=== PATIENT | male | born 1985 | race Caucasian/White ===

== ENCOUNTER 2022-02-10 09:15 | Emergency (ER) | payer MEDICAID ==
[2022-02-10] MEDS ORDERED: ONDANSETRON 4 MG/2 ML VIAL IVP STA (09:33)
[2022-02-10] MEDS ORDERED: MORPHINE 2 MG/ML CARPUJECT IVP STA (09:33)
--- NOTE | 2022-02-10 09:55 | XRAY Report ---
PROCEDURE: Chest 1 View X-Ray INDICATIONS: SOA; large R chest wall bruise TECHNIQUE: One view of the chest was acquired. COMPARISON: None FINDINGS: Surgical changes and devices: None. Lungs and pleura: No pleural effusions or pneumothorax. Lungs are clear. Mediastinum: Mediastinal contours appear normal. Heart size is normal. Bones and chest wall: No suspicious bony lesions. Overlying soft tissues appear unremarkable. IMPRESSION: No acute process. Reviewed by: Vonnie Yeager MD on 02/10/2022 9:53 AM PDT Approved by: Vonnie Yeager MD on 02/10/2022 9:53 AM PDT Station ID: [id number]
[2022-02-10 10:04] LABS: BASOPHILS # (AUTO) 0.1 10^3/uL (0.0-0.1); EOSINOPHILS % (AUTO) 0.2 %; HCT - HEMATOCRIT 36.9 % (42.0-52.0); HGB - HEMOGLOBIN 12.4 g/dL (14.0-18.0); LYMPHOCYTES # (AUTO) 0.8 10^3/uL (1.5-3.5); MEAN CORPUSCULAR HEMOGLOBIN 31.7 pg (27.0-31.0); MEAN CORPUSCULAR HGB CONC 33.6 g/dL (32.0-36.0); MEAN CORPUSCULAR VOLUME 94.4 fL (80.0-94.0); MEAN PLATELET VOLUME 9.4 fL (7.4-11.4); MONOCYTES # (AUTO) 1.2 10^3/uL (0.0-1.0); MONOCYTES % (AUTO) 20.6 %; NEUTROPHILS # (AUTO) 3.8 10^3/uL (1.5-6.6); NEUTROPHILS % (AUTO) 64.7 %; PLT - PLATELET COUNT 471 10^3/uL (130-450); RED BLOOD COUNT 3.91 10^6/uL (4.70-6.10); RED CELL DISTRIBUTION WIDTH 15.9 % (12.0-15.0); WHITE BLOOD COUNT 5.9 x10^3/uL (4.8-10.8)
[2022-02-10 10:13] LABS: PT - PROTHROMBIN TIME 11.5 secs (9.9-12.6)
[2022-02-10 10:19] LABS: ALBUMIN 3.8 g/dL (3.2-5.5); BILIRUBIN,TOTAL 1.8 mg/dL (0.2-1.0); CALCIUM 9.5 mg/dL (8.5-10.3); CREATININE 0.8 mg/dL (0.6-1.2); TOTAL PROTEIN 7.5 g/dL (6.7-8.2)
[2022-02-10] MEDS ORDERED: HYDROmorphone 1 MG/ML CARPUJECT IVP STA (11:09)
--- NOTE | 2022-02-10 11:48 | CT Report ---
PROCEDURE: CHEST W INDICATIONS: R sided ecchymosis of uknown etiology/SOA/CP CONTRAST: IV CONTRAST: Optiray 320 ml: 100 PO CONTRAST: *NO PO CONTRAST TECHNIQUE: After the administration of intravenous contrast, 1 mm axial images were acquired from the pulmonary apices through the posterior costophrenic angles. Axial 5 mm soft tissue kernel reconstructions were performed as well as 8 mm axial MIP and coronal and sagittal 5 mm reformations. For radiation dose reduction, the following was used: automated exposure control, adjustment of mA and/or kV according to patient size. COMPARISON: 02/10/2022 FINDINGS: Image quality: Excellent. Lungs and pleura: No acute air space opacities. No pleural effusions or pneumothorax. Central and peripheral airways are patent and normal in caliber. Mediastinum: Heart size is normal. No pericardial effusion. No mediastinal or hilar adenopathy by size criteria. Thoracic aorta and central pulmonary arteries are normal in size. Esophagus is tamica l in caliber. No hiatal hernia. Bones and chest wall: No suspicious bony lesions. No vertebral body compression fractures. No axil antoinette or supraclavicular adenopathy by size criteria. The thyroid is normal in size and there are no incidental findings.. Abdomen: Visualized portions of the upper abdomen demonstrate diffusely decreased hepatic density, i ndicating fatty infiltration. IMPRESSION: 1. No acute process. 2. Hepatic steatosis. Reviewed by: Vonnie Yeager MD on 02/10/2022 11:46 AM PDT Approved by: Vonnie Yeager MD on 02/10/2022 11:46 AM PDT Station ID: [id number]
--- NOTE | 2022-02-10 11:49 | CT Report ---
PROCEDURE: Abdomen/Pelvis W INDICATIONS: bruising of unknown etiology/abdominal pain CONTRAST: IV CONTRAST: Optiray 320 ml: 100 PO CONTRAST: *NO PO CONTRAST TECHNIQUE: After the administration of contrast, 5 mm thick sections acquired from the diaphragms to the sym physis. 5 mm thick coronal and sagittal reformats were acquired. For radiation dose reduction, the following was used: automated exposure control, adjustment of mA and/or kV according to patient size . COMPARISON: None. FINDINGS: Image quality: Excellent. ABDOMEN: Lung bases: Lung bases are clear. Heart size is normal. Solid organs: Liver is enlarged and demonstrates diffusely decreased density without focal mass Gall bladder is mildly distended and demonstrates a small amount of high density material within its lumen . No surrounding fat stranding to indicate acute inflammation. Biliary system is non dilated. Pancr eas enhances normally. No adrenal nodules. Kidneys demonstrate normal size and enhancement, without hydronephrosis. Peritoneum and bowel: Bowel loops demonstrate normal wall thickness and caliber. Appendix not seen. No evidence of appendicitis. No free fluid or air. Nodes and vessels: No retroperitoneal or mesenteric adenopathy by size criteria. Aorta and inferior vena cava are normal in size. Miscellaneous: No ventral hernias. PELVIS: Genitourinary: Bladder wall thickness is normal. Miscellaneous: No inguinal hernias or adenopathy. Bones: No suspicious bony lesions. No vertebral body compression fractures. IMPRESSION: 1. No acute process. 2. Cholelithiasis. No evidence of cholecystitis. 3. Appendix not seen. No evidence of appendicitis. 4. Hepatic steatosis. Reviewed by: Vonnie Yeager MD on 02/10/2022 11:48 AM PDT Approved by: Vonnie Yeager MD on 02/10/2022 11:48 AM PDT Station ID: [id number]
[2022-02-10] MEDS ORDERED: POTASSIUM CHLORIDE 20 MEQ TABLET PO STA (12:01)
[2022-02-10] MEDS ORDERED: LIDOCAINE PATCH 5% TOP STA (12:35)
--- NOTE | 2022-02-10 12:37 | ED Physician Documentation ---
History of Present Illness - Stated complaint Stated Complaint: SOA/ CHEST PX - Chief complaint Chief Complaint: Resp - History obtained from History obtained from: Patient - Additonal information Additional information: Patient is a 36-year-old male presenting for evaluation of right chest wall pain and feeling short of breath. He reports waking up at 6 AM with the pain. He has a large bruise to the right chest as well as elsewhere in his body is unsure of how these bruises came about. He does have a history of alcohol abuse and reports last drinking 1 week ago. He denies any known recent falls or injuries.He does not take a blood thinner.His symptoms are worse with movement and better at rest. Review of Systems Constitutional: denies: Fever Cardiac: reports: Chest pain / pressure Respiratory: reports: Dyspnea. denies: Cough GI: reports: Abdominal Pain, Nausea : denies: Dysuria Musculoskeletal: denies: Back pain Neurologic: denies: Headache, Head injury PD PAST MEDICAL HISTORY - Present Medications Home Medications: Ambulatory Orders Medication Instructions Recorded Confirmed Ondansetron Odt [Zofran] 4 mg TL Q6H PRN #10 tablet 02/10/22 Pantoprazole [Protonix] 40 mg PO DAILY #14 tablet 02/10/22 oxyCODONE [Roxicodone] 5 mg PO Q6H PRN #10 tablet 02/10/22 - Allergies Allergies/Adverse Reactions: Allergies Allergy/AdvReac Type Severity Reaction Status Date / Time No Known Drug Allergies Allergy Verified 02/10/22 09:35 PD ED PE NORMAL - General General: Alert and oriented X 3, No acute distress, Well developed/nourished - HEENT HEENT: Atraumatic, PERRL, EOMI, Moist mucous membranes, Pharynx benign - Neck Neck: Supple, no meningeal sign, No bony TTP, C-Spine cleared by NEXUS criteria - Cardiac Cardiac: RRR, No murmur, Strong equal pulses, Other (Large contusion to right chest wall, purple and yellowed) - Respiratory Respiratory: No respiratory distress, Clear bilaterally - Abdomen Abdomen: Normal bowel sounds, Other (Ecchymosis to right flank, generalized abdominal tenderness to palpation) - Back Back: No spinal TTP - Extremities Extremities: No edema, Other (Small contusions to extremities) - Neuro Neuro: Alert and oriented X 3, md psychiatry 2-12 intact, No motor deficit, No sensory deficit, Normal speech Eye Opening: Spontaneous Motor: Obeys Commands Verbal: Oriented GCS Score: 15 Results - Vitals Vitals: Vital Signs - 24 hr 02/10/22 02/10/22 02/10/22 09:31 11:00 12:30 Temperature 36.5 C Heart Rate 67 64 54 L Respiratory 25 H 18 16 Rate Blood Pressure 119/80 115/74 123/75 O2 Saturation 100 100 99 02/10/22 13:00 Temperature Heart Rate 70 Respiratory 18 Rate Blood Pressure 127/83 H O2 Saturation 100 Oxygen O2 Source Room air - EKG (time done) 0931 Rate: Rate (enter#) (62) Rhythm: NSR Ischemia: No: ST elevation c/w ischemia, ST depression - Labs Labs: Laboratory Tests 02/10/22 02/10/22 02/10/22 09:56 09:56 09:56 WBC 5.9 RBC 3.91 L Hgb 12.4 L Hct 36.9 L MCV 94.4 H MCH 31.7 H MCHC 33.6 RDW 15.9 H Plt Count 471 H MPV 9.4 Neut # (Auto) 3.8 Lymph # (Auto) 0.8 L Valley # (Auto) 1.2 H Eos # (Auto) 0.0 Baso # (Auto) 0.1 Absolute Nucleated RBC 0.00 Nucleated RBC % 0.0 PT INR Sodium 139 Potassium 3.0 L Chloride 102 Carbon Dioxide 24 Anion Gap 13.0 BUN 8 Creatinine 0.8 Estimated GFR (MDRD) 109 Glucose 126 H Calcium 9.5 Total Bilirubin 1.8 H AST 234 H ALT 162 H Alkaline Phosphatase 76 Total Protein 7.5 Albumin 3.8 Globulin 3.7 Albumin/Globulin Ratio 1.0 Lipase 31 Blood Type A NEGATIVE Blood Type Recheck Antibody Screen NEGATIVE 02/10/22 02/10/22 09:56 10:20 WBC RBC Hgb Hct MCV MCH MCHC RDW Plt Count MPV Neut # (Auto) Lymph # (Auto) Valley # (Auto) Eos # (Auto) Baso # (Auto) Absolute Nucleated RBC Nucleated RBC % PT 11.5 INR 1.0 Sodium Potassium Chloride Carbon Dioxide Anion Gap BUN Creatinine Estimated GFR (MDRD) Glucose Calcium Total Bilirubin AST ALT Alkaline Phosphatase Total Protein Albumin Globulin Albumin/Globulin Ratio Lipase Blood Type Blood Type Recheck A NEGATIVE Antibody Screen PD MEDICAL DECISION MAKING - ED course Complexity details: reviewed results, re-evaluated patient, d/w patient ED course: Pt with R sided CP and large areas of bruising to chest and abdomen. Pt denies knowing how he got these bruises. Has h/o ETOH use but denies recent use. Labs reviewed. Normal neuro exam and no signs of head injury. CT scans of C/A/P with no internal injuries. Discussed treatment plan as well as concerning symptoms to return for. Departure - Departure Disposition: 01 Home, Self Care Clinical Impression: Hypokalemia, Abnormal liver function test Contusion of chest wall Qualifiers: Encounter type: initial encounter Laterality: right Qualified Code(s): S20.211A - Contusion of right front wall of thorax, initial encounter Abdominal wall contusion Qualifiers: Encounter type: initial encounter Qualified Code(s): S30.1XXA - Contusion of abdominal wall, initial encounter Condition: Stable Instructions: ED Contusion Soft Tissue, ED Contusion Chest Wall Prescriptions: Pantoprazole [Protonix] 40 mg PO DAILY #14 tablet oxyCODONE [Roxicodone] 5 mg PO Q6H PRN #10 tablet PRN Reason: Pain Ondansetron Odt [Zofran] 4 mg TL Q6H PRN #10 tablet PRN Reason: Nausea / Vomiting Comments: You have large areas of bruising all over your body and it is unclear how you got these. A CT scan of your chest abdomen and pelvis was done and does not show any signs of any internal injury. I have sent a small prescription of narc otic pain medication to [facility] in [place]. Do not use narcotic medication if you are using alcohol as it may make you overly sedated. I have also sent a medication which may help with acid in your stomach called Protonix.Please follow-up with your primary care doctor.If you have any worsening symptoms, please consider return to the ER. Your liver markers are slightly abnormal - This could be from heavy alcohol use. Please make an appointment to follow-up with your primary care doctor in the next week to have these rechecked. I am prescribing a short course of narcotic pain medication for you. These are potentially dangerous and addictive medications that should be used carefully. These medications may constipate you. Take an [id number] stool softener (docusate) twice daily with plenty of water while taking these medications. If you go 24 hours without a bowel movement, take [id number] miralax, per package instructions. Do not drink or drive while taking these medications. If you received narcotic or sedating medications while in the emergency department, do not drive for 24 hours. Store this medication in a safe, secure place and out of reach of children. It is a violation of federal law to give or sell this medication to another person or to use in a manner other than prescribed. The ED will not refill narcotic prescriptions, including prescriptions lost or stolen. To dispose of unwanted medications: 1. [facility] [address] in [place] has a medication drop box. They accept prescription medications (in pill form) Monday through Monday 9:00 a.m. to 5:00 p.m. 2. [facility] [employer] [facility] accepts prescription medications (in pill form only) for disposal year round. Call for more information. 3. Contact the [facility] for the next [facility] sponsored prescription drug collection event. , [phone], or [phone]; Note that many narcotic pain relievers also contain Tylenol/acetaminophen. Please ensure that your total dose of acetaminophen from all sources does not exceed 3 g (3000 mg) per day. Discharge Date/Time: 02/10/22 13:40
[2022-02-10 13:05] VITALS: BP 127/83
== END 2022-02-10 13:40 | disposition home or self-care (01) ==
LOC: ED 09:15
DX: S20.221A Contusion of right back wall of thorax, initial encounter (principal); S30.1XXA Contusion of abdominal wall, initial encounter; X58.XXXA Exposure to other specified factors, initial encounter; E87.6 Hypokalemia; R94.5 Abnormal results of liver function studies
CPT/HCPCS: 36415; 71045; 71260; 74177; 80053; 83690; 85025; 85610; 86850; 86900; 86901; 93005; 96374; 96375; 99284; A9270; J1170; Q9967